=== PATIENT | male | born 1980 | race Caucasian/White ===

== ENCOUNTER → 2017-09-20 | Outpatient (CLI) | payer OTHER ==
[~2017-09-20] MED LIST: DIA5 PO; IBUP800T37 PO; LOR5/325 PO; PENI-24 PO
== END ==
LOC: RESP 09:37
PROVIDERS: ATTEND Family Medicine
DX: R09.02 Hypoxemia (principal)

== ENCOUNTER → 2018-06-17 | Outpatient (CLI) | payer OTHER ==
--- NOTE | 2018-06-17 11:36 | RADIOLOGY IMAGING REPORT ---
FACILITY: [facility] - [place] PATIENT NAME: Israel Duncan : 1980 MR: [id number] V: [id number] EXAM DATE: ORDERING PHYSICIAN: SALAZAR RAMIREZ TECHNOLOGIST: Location: [facility] [place] Patient: Israel Duncan : 1980 Visit/Account:[id number] Date of Sevice: 06/17/2018 Single view of the orbits INDICATION: Pre-MRI. Evaluate for radiopaque foreign body. COMPARISON: None available. FINDINGS: Single view of the orbits. No radiopaque foreign body. Otherwise negative. IMPRESSION: No radiopaque foreign body. Report Dictated By: Beck Reyes MD at 06/17/2018 11:32 AM Report E-Signed By: Beck Reyes MD at 06/17/2018 11:33 AM WSN:[id number]
--- NOTE | 2018-06-23 10:34 | RADIOLOGY IMAGING REPORT ---
FACILITY: [facility] PATIENT NAME: Israel Duncan : 1980 MR: [id number] V: [id number] EXAM DATE: ORDERING PHYSICIAN: SALAZAR RAMIREZ TECHNOLOGIST: Location: [facility] [place] Patient: Israel Duncan : 1980 Visit/Account:[id number] Date of Sevice: 06/17/2018 MRI left knee Indication: Left knee pain and swelling Comparison: Left knee radiograph 06/13/2018 Technique: Multiplanar, multisequence MRI examination is performed of the left knee without contrast. Findings: Medial femorotibial compartment: The medial meniscus is normal in signal and morphology with no evidence for tear. Low-grade cartilage loss is present. Lateral femorotibial compartment: The lateral meniscus is normal in signal and morphology with no evidence for tear. Couple moderate grade cartilage fissures are present in the central lateral tibial plateau. Low grad e cartilage loss is present in the lateral femoral condyle. Patellofemoral compartment: The patella is not subluxed. There are moderate to high-grade cartilage fissures present in the median ridge and lateral facet of the patella. Low to moderate grade cartilage fissuring is present in the central to lateral aspect o f the femoral trochlea. Background low grade cartilage loss is present in the patellofemoral compartment. Osseous structures/bone marrow: Bone contusion is present in the proximal tibia anterolaterally, suggestive of a dashboard pattern of injury. Small joint effusion is present. There is no significant popliteal cyst present. Ligaments and tendons: There is complete rupture in the midportion of the posterior cruciate ligament with heterogeneity and irregularity noted. There is mild buckling of the proximal fibers. The anterior cruciate ligament is intact. No abnormal posterior translation of the proximal tibia relative to the distal femur is s een. At least low-grade popliteus musculotendinous junction strain is present. Edema and trace fluid supe rficial to its course suggests popliteofibular ligament injury. Low grade fibular collateral ligamen t sprain and mild distal biceps femoris tendinosis is present, or distal conjoined tendinosis. The remaining medial and lateral supporting structures of the knee are normal. The quadriceps and patellar tendons are intact. The medial and lateral patellar retinacula are normal. No significant muscle atrophy is seen. Adjacent soft tissues: Generalized reactive subcutaneous edema is present and is greatest anteriorly and posterolaterally. IMPRESSION: 1. Complete rupture in the midportion of the posterior cruciate ligament (PCL). 2. Bone contusion in the anterior aspect of the proximal tibia is suggestive of impaction injury whi le the knee is flexed, or so-called dashboard injury, typically associated with PCL tear. 3. Evidence of posterolateral corner injury, characterized by low grade popliteus musculotendinous j unction strain, popliteofibular ligament injury and mild distal conjoined tendinosis. 4. Tricompartmental cartilage loss is characterized by moderate to high-grade cartilage fissures in the patellofemoral compartment. Low grade cartilage loss in the medial greater than lateral femoroti bial compartments. 5. Small joint effusion. Report Dictated By: Ciara Rosas MD at 06/17/2018 3:06 PM Report E-Signed By: Ciara Rosas MD at 06/17/2018 3:24 PM WSN:[email or web address]
== END ==
LOC: MRI 03:06
PROVIDERS: ATTEND Family Medicine
DX: S83.521A Sprain of posterior cruciate ligament of right knee, initial encounter (principal); M25.462 Effusion, left knee
CPT/HCPCS: 70030